=== PATIENT | female | born 1950 | race Caucasian/White ===

== ENCOUNTER 2020-08-24 14:58 | Emergency (ER) | payer OTHER, MEDICARE ==
[2020-08-24] MEDS ORDERED: Ibuprofen 200 MG TAB ONE (16:29)
[2020-08-24] MEDS ORDERED: Cyclobenzaprine 10 MG TAB ONE (16:29)
== END 2020-08-24 17:50 | disposition home or self-care (01) ==
LOC: ERS 14:58
DX: S13.4XXA Sprain of ligaments of cervical spine, initial encounter (principal); S16.1XXA Strain of muscle, fascia and tendon at neck level, initial encounter; M54.5 Low back pain; M19.90 Unspecified osteoarthritis, unspecified site; V43.52XA Car driver injured in collision with other type car in traffic accident, initial encounter; Y92.410 Unspecified street and highway as the place of occurrence of the external cause
CPT/HCPCS: 72125

== ENCOUNTER 2020-12-08 12:29 | Outpatient (CLI) | payer MEDICARE ==
[~2020-12-08 12:29] MED LIST: Magnevist 469MG/ML 20 ML VIAL ONE
== END 2020-12-08 12:30 | disposition home or self-care (01) ==
LOC: BICMRI 12:29
PROVIDERS: ATTEND Family Medicine
DX: M47.22 Other spondylosis with radiculopathy, cervical region (principal); G89.4 Chronic pain syndrome; M48.02 Spinal stenosis, cervical region; M43.12 Spondylolisthesis, cervical region; Z98.1 Arthrodesis status
CPT/HCPCS: 72156; 82565

== ENCOUNTER 2021-02-21 10:30 | Outpatient (CLI) | payer MEDICARE | END 2021-02-21 10:31 | disposition home or self-care (01) | LOC: RAD 10:30 | PROVIDERS: ATTEND Internal Medicine Critical Care Medicine | DX: R06.00 Dyspnea, unspecified (principal) | CPT/HCPCS: 71046 ==

== ENCOUNTER 2021-06-30 09:05 | Outpatient (CLI) | payer MEDICARE | END 2021-06-30 09:06 | disposition home or self-care (01) | LOC: MRI 09:05 | PROVIDERS: ATTEND Surgery | DX: M47.26 Other spondylosis with radiculopathy, lumbar region (principal) | CPT/HCPCS: 72100; 72148 ==

== ENCOUNTER 2022-02-01 08:59 | Outpatient (CLI) | payer MEDICARE | END 2022-02-01 09:00 | disposition home or self-care (01) | LOC: BICMAMMO 08:59 | PROVIDERS: ATTEND Family Medicine | DX: M81.0 Age-related osteoporosis without current pathological fracture (principal) | CPT/HCPCS: 77080 ==

== ENCOUNTER 2023-03-27 13:15 | Outpatient (CLI) | payer MEDICARE | END 2023-03-27 13:16 | disposition home or self-care (01) | LOC: MRI 13:15 | PROVIDERS: ATTEND Surgery | DX: M48.062 Spinal stenosis, lumbar region with neurogenic claudication (principal); M47.816 Spondylosis without myelopathy or radiculopathy, lumbar region; M47.817 Spondylosis without myelopathy or radiculopathy, lumbosacral region; M47.815 Spondylosis without myelopathy or radiculopathy, thoracolumbar region; M51.26 Other intervertebral disc displacement, lumbar region; M48.061 Spinal stenosis, lumbar region without neurogenic claudication | CPT/HCPCS: 72110; 72148 ==

== ENCOUNTER 2023-03-28 16:55 | Inpatient (IN) | payer MEDICARE ==
[2023-03-28] MEDS ORDERED: Acetaminophen 325 MG TAB PO PRN (17:35)
[2023-03-28] MEDS ORDERED: Morphine 2 MG/ML VIAL SLOW IVP PRN (17:35)
[2023-03-28] MEDS ORDERED: traMADol HCl 50 MG TAB PO PRN (17:35)
[2023-03-28] MEDS ORDERED: diphenhydrAMINE 25 MG CAP PO PRN (17:35)
[2023-03-28] MEDS ORDERED: tiZANidine HCl 4 MG TAB PO PRN (17:38)
[2023-03-28] MEDS ORDERED: HYDROcodone/Acetaminophen 5/325 mg Tablet PO PRN (17:38)
[2023-03-28 18:31] LABS: #Basophils 0.1 thou/uL (0.0-0.2); #Eosinphils 0.2 thou/uL (0.0-0.7); #Monocytes 0.8 thou/uL (0.11-0.59); #Neutrophils 4.6 thou/uL (1.40-6.50); %Eosinophils 2.1 % (0.0-10.0); %Lymphocytes 20.7 % (21.0-51.0); %Monocytes 11.3 % (0.0-10.0); %Neutrophils 64.6 % (42.0-75.0); Hematocrit 39.6 % (36.0-47.0); Hemoglobin 12.8 g/dL (12.0-16.0); Mean Corpuscular HGB CONC 32.3 g/dL (32.0-36.0); Mean Corpuscular Hemoglobin 30.7 pg (27.0-31.0); Mean Platelet Volume 9.5 fL (7.4-10.4); Platelet Count 387 10x3/uL (130-400); RBC Distribution Width 12.5 % (11.5-14.5); Red Blood Cell (RBC) Count 4.17 mill/uL (4.20-5.40); White Blood Cell (WBC) Count 7.1 10x3/uL (4.8-10.8)
[2023-03-28 18:53] LABS: PTT 25.9 sec (22.9-36.1); Prothrombin Time 12.9 sec (12.0-14.7)
[2023-03-28 18:54] LABS: Anion Gap 10 mmol/L (10-20); BUN (Urea Nitrogen) 31 mg/dL (9.8-20.1); Calc. Creatinine Clearance 0 mL/min (70-130); Calcium 10.2 mg/dL (7.8-10.44); Carbon Dioxide 29 mmol/L (23-31); Chloride 103 mmol/L (98-107); Estimated GFR 58; Glucose 117 mg/dL (83-110); Potassium 4.3 mmol/L (3.5-5.1); Sodium 138 mmol/L (136-145)
[2023-03-28] MEDS: HYDROcodone/Acetaminophen 5/325 mg Tablet PO PRN (20:17)
[2023-03-28 20:33] VITALS: BMI 20.9
[2023-03-28] MEDS ORDERED: Loratadine/Pseudoephedrine 10/240 mg Tablet PO PRN (22:41)
[2023-03-29] MEDS: Ondansetron PF 4 MG/2 ML Vial IVP PRN (05:13)
[2023-03-29] MEDS ORDERED: Lidocaine 2% PF 5 ML VIAL ONE (10:28)
[2023-03-29] MEDS ORDERED: Rocuronium Bromide 10 MG/ML (10ML VIAL) ONE (10:28)
[2023-03-29] MEDS ORDERED: fentaNYL PF 100 MCG/2 ML SYRINGE ONE (10:28)
[2023-03-29] MEDS ORDERED: PROPOFOL 20 ML ONE ×2 (10:28→12:11)
[2023-03-29] MEDS ORDERED: Midazolam HCl 2 mg/2 ml Vial ONE (11:12)
[2023-03-29] MEDS ORDERED: Clindamycin/D5W 600 mg/50 ml Premix Bag ONE (11:36)
[2023-03-29] MEDS ORDERED: LevoFLOXacin D5W 500 mg (100 mL) BAG ONE (11:36)
[2023-03-29] MEDS ORDERED: Lidocaine 2% 6 ML (Jelly) SYR ONE (11:48)
[2023-03-29] MEDS ORDERED: SUCCINYLCHOLINE/SOD CL,ISO/PF 200 MG/10 ML SYRINGE FS ONE (11:57)
[2023-03-29] MEDS ORDERED: ePHEDrine/0.9% NaCl/PF SYRINGE 50 mg/10 ml ONE (11:57)
[2023-03-29] MEDS ORDERED: Ondansetron PF 4 MG/2 ML Vial ONE ×2 (12:35→16:19)
[2023-03-29] MEDS ORDERED: PHENYLEPHRINE-NS 100 MCG/ML 10 ML SYRINGE ONE (12:39)
[2023-03-29] MEDS ORDERED: Vasopressin 20 UNITS/ML VIAL ONE (13:11)
[2023-03-29] MEDS ORDERED: Phenylephrine 10 MG/ML VIAL ONE (13:12)
[2023-03-29] MEDS ORDERED: Dexamethasone 4 mg/ml Vial ONE (13:52)
[2023-03-29] MEDS ORDERED: SUGAMMADEX SODIUM 200 MG/2 ML VIAL ONE (13:54)
[2023-03-29] MEDS ORDERED: Vancomycin HCl 500 MG VIAL ONE (14:32)
[2023-03-29] MEDS ORDERED: Phenol 177 ML BOT PO PRN (14:34)
[2023-03-29] MEDS ORDERED: Promethazine 25 MG TAB PO PRN (14:35)
[2023-03-29] MEDS ORDERED: Thrombin 5000 UNITS/5 ML VIAL ONE (14:36)
[2023-03-29] MEDS ORDERED: hydrALAZINE 20 MG/ML VIAL SLOW IVP PRN (14:37)
[2023-03-29] MEDS ORDERED: fentaNYL 50 mcg/mL 1 mL Vial ONE (14:45)
[2023-03-29] MEDS ORDERED: HYDROmorphone 0.5 MG/0.5 ML SYRINGE ONE ×4 (14:56→15:36)
[2023-03-29] MEDS ORDERED: fentaNYL 50 mcg/mL 1 mL Vial SLOW IVP PRN (15:10)
[2023-03-29] MEDS: Sodium Chloride 0.9% 1,000 ML IV SCH (17:43)
[2023-03-29] MEDS: Dexamethasone 4 mg/ml Vial SLOW IVP SCH (17:43)
[2023-03-29] MEDS: Diazepam 5 MG TAB PO SCH (17:43)
[2023-03-29] MEDS: Dexamethasone 4 MG TAB PO SCH (20:05)
[2023-03-29] MEDS: Scopolamine 1 mg/72 hour Patch TD PRN (20:05)
[2023-03-29] MEDS: Clindamycin/D5W 900 MG in Premix 1 BAG IVPB SCH (20:05)
[2023-03-30] MEDS ORDERED: Pantoprazole 40 MG VIAL IVP SCH (09:00)
[2023-03-30] MEDS: Dexamethasone 4 MG TAB PO SCH ×2 (09:38→12:24)
[2023-03-30] MEDS: Ketorolac Tromethamine 30 MG (1 mL) VIAL IVP PRN (09:38)
[2023-03-31] MEDS: Dexamethasone 4 MG TAB PO SCH (17:26)
[2023-04-01] MEDS: Diazepam 5 MG TAB PO PRN (03:58)
[2023-04-02] MEDS: Milk Of Magnesia 30 ML UDCUP PO PRN (09:11)
[2023-04-02] MEDS: Dexamethasone 4 MG TAB PO SCH (16:35)
[2023-04-03] MEDS ORDERED: traMADol HCl 50 MG TAB PO PRN (18:48)
[2023-04-03 20:39] VITALS: BP 156/81; TEMP 98.3
[2023-04-03] MEDS: HYDROcodone/Acetaminophen 5/325 mg Tablet PO PRN (21:38)
[2023-04-04] MEDS ORDERED: Dexamethasone 1 MG TAB PO SCH (17:00)
== END 2023-04-03 22:58 | disposition swing bed (61) | DRG 520 ==
LOC: SJJU 16:55
PROVIDERS: ADMIT Surgery; ATTEND Surgery
PROC: 0SB20ZZ Excision of Lumbar Vertebral Disc, Open Approach (ICD-10-PCS; principal; 2023-03-29)
PROC: 00NY0ZZ Release Lumbar Spinal Cord, Open Approach (ICD-10-PCS; 2023-03-29)
PROC: 01NB0ZZ Release Lumbar Nerve, Open Approach (ICD-10-PCS; 2023-03-29)
PROC: 3E033XZ Introduction of Vasopressor into Peripheral Vein, Percutaneous Approach (ICD-10-PCS; 2023-03-29)
DX: M48.061 Spinal stenosis, lumbar region without neurogenic claudication (principal); M51.16 Intervertebral disc disorders with radiculopathy, lumbar region; R53.1 Weakness; E78.5 Hyperlipidemia, unspecified; M81.0 Age-related osteoporosis without current pathological fracture; G89.4 Chronic pain syndrome; I73.00 Raynaud's syndrome without gangrene; G43.909 Migraine, unspecified, not intractable, without status migrainosus; Z88.0 Allergy status to penicillin; Z88.5 Allergy status to narcotic agent; Z99.3 Dependence on wheelchair; Z79.899 Other long term (current) drug therapy; Z90.710 Acquired absence of both cervix and uterus; Z90.49 Acquired absence of other specified parts of digestive tract; Z82.49 Family history of ischemic heart disease and other diseases of the circulatory system; Z83.3 Family history of diabetes mellitus
CPT/HCPCS: 36415; 72110; 72148; 74018; 80048; 85025; 85610; 85730; J1100; J1170; J1885; J1956; J2001; J2250; J2371; J2405; J2704; J3010; J3370; J3490; J7050; J8540

== ENCOUNTER 2023-09-14 14:14 | Outpatient (CLI) | payer MEDICARE | END 2023-09-14 14:15 | disposition home or self-care (01) | LOC: BICMRI 14:14 | PROVIDERS: ATTEND Physician Assistant | DX: M51.16 Intervertebral disc disorders with radiculopathy, lumbar region (principal); M48.061 Spinal stenosis, lumbar region without neurogenic claudication; Z98.890 Other specified postprocedural states | CPT/HCPCS: 72148 ==

== ENCOUNTER 2024-01-25 13:11 | Outpatient (CLI) | payer MEDICARE | END 2024-01-25 13:12 | disposition home or self-care (01) | LOC: MRI 13:11 | PROVIDERS: ATTEND Surgery | DX: M51.16 Intervertebral disc disorders with radiculopathy, lumbar region (principal); M47.26 Other spondylosis with radiculopathy, lumbar region; M48.061 Spinal stenosis, lumbar region without neurogenic claudication; M43.16 Spondylolisthesis, lumbar region; M51.379 Other intervertebral disc degeneration, lumbosacral region without mention of lumbar back pain or lower extremity pain; M48.07 Spinal stenosis, lumbosacral region; M47.817 Spondylosis without myelopathy or radiculopathy, lumbosacral region; M96.1 Postlaminectomy syndrome, not elsewhere classified | CPT/HCPCS: 72148 ==